=== PATIENT | male | born 1950 | race Caucasian/White ===

== ENCOUNTER 2018-03-03 00:34 | Inpatient (IN) | payer OTHER ==
[~2018-03-03] VITALS: Ht 180.3 cm; Wt 77.1 kg
[2018-03-03] MEDS ORDERED: APRESOLINE100 MG ORAL ×2 (04:57→04:59)
[2018-03-03] MEDS ORDERED: HYDROCHLOROTH12.5 M2 ORAL (04:57)
[2018-03-03] MEDS ORDERED: LIPITOR80 MG ORAL (04:57)
[2018-03-03] MEDS ORDERED: FLUOXETINE HCL25 G1 MISC (04:57)
[2018-03-03] MEDS ORDERED: LEVETIRACETAM250 MG PO (04:57)
[2018-03-03] MEDS ORDERED: PEPTAMEN GT (04:57)
[2018-03-03] MEDS ORDERED: FLUOXETINE20 MG/5 ML ORAL (04:57)
[2018-03-03] MEDS ORDERED: LOVENOX300 MG/3 M SUBQ (04:57)
[2018-03-03] MEDS ORDERED: NORVASC5 MG ORAL (04:57)
[2018-03-03] MEDS ORDERED: LISINOPRIL20 MG ORAL (04:57)
[2018-03-03 07:52] LABS: BASOPHILS % (AUTO) 1.5 % (0.0-2.0); EOSINOPHILS % (AUTO) 2.4 % (0.0-3.0); HEMATOCRIT 32.3 % (42.0-52.0); HEMOGLOBIN 10.9 G/DL (14.2-18.0); LYMPHOCYTES % (AUTO) 9.4 % (20.0-45.0); MEAN CORPUSCULAR VOLUME 87 FL (80-99); MONOCYTES % (AUTO) 9.1 % (1.0-10.0); NEUTROPHILS % (AUTO) 77.7 % (45.0-75.0); PLATELET COUNT 390 K/UL (150-450); RED BLOOD COUNT 3.72 M/UL (4.70-6.10); RED CELL DISTRIBUTION WIDTH 13.5 % (11.6-14.8); WHITE BLOOD COUNT 8.8 K/UL (4.8-10.8)
[2018-03-03 08:09] LABS: ANION GAP 8 mmol/L (5-15); BLOOD UREA NITROGEN 41 mg/dL (7-18); CALCIUM 8.6 MG/DL (8.5-10.1); CARBON DIOXIDE 23 MMOL/L (21-32); CHLORIDE 102 MMOL/L (98-107); CREATININE 1.2 MG/DL (0.55-1.30); POTASSIUM 4.7 MMOL/L (3.5-5.1); SODIUM 133 MMOL/L (136-145)
[2018-03-03 08:53] VITALS: BP 112/64
[2018-03-03] MEDS ORDERED: HydrALAZINE 50mg tab GT PRN (09:30)
[2018-03-03] MEDS ORDERED: Albuterol/Ipratropium 3ml neb HHN PRN (10:00)
[2018-03-03] MEDS ORDERED: Vancomycin 1250mg/D5W 250ml IVPB SCH (10:00)
--- NOTE | 2018-03-03 10:12 | Diagnostic Imaging Report ---
Indication: Cough, chest pain Technique: One view of the chest Comparison: none Findings: There is blunting of left costophrenic sulcus. The remainder the lungs and pleural spaces are clear. Heart size is normal. Impression: Blunted left costophrenic sulcus, may indicate atelectasis, pleural fluid, or both No acute process otherwise
[2018-03-03] MEDS: Enoxaparin 40mg Inj SUBQ SCH (10:56)
[2018-03-03] MEDS ORDERED: Zoysn 3.37gm in NS 100ML IVPB SCH (11:00)
[2018-03-03 12:29] VITALS: BP 144/59
[2018-03-03] MEDS: Albuterol/Ipratropium 3ml neb HHN SCH ×2 (13:37→19:21)
--- NOTE | 2018-03-03 14:03 | History and Physical ---
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 Per pt's girlfriend, on Monday 02/26 but had episode of emesis when he was lying flat while receiving tube feeds. Since then he has had a progressive cough and congestion. He did improve so she didn't bring him in. Yesterday, she noted pt with progressive generalized weakness/lethargy with some confusion. He didn't squeeze her hands as tightly as he normally does. No reports of f/c, chest pain , SOB, abd pain, new focal weakness/numbness/tingling, dysuria. 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 Allergies: Coded Allergies: NO KNOWN ALLERGIES (Verified Allergy, Unknown, 03/03/18) Medication History Scheduled Amlodipine Besylate (Norvasc), 5 MG ORAL BID, (Reported) Aspirin* (Aspir 81*), 81 MG ORAL DAILY, (Reported) Atorvastatin (Lipitor), 80 MG ORAL BEDTIME, (Reported) Enoxaparin Sodium (Lovenox), 40 MG SUBQ DAILY, (Reported) Fluoxetine Hcl* (Fluoxetine Hcl*), 20 MG ORAL DAILY, (Reported) Hydrochlorothiazide* (Hydrochlorothiazide*), 12.5 MG ORAL DAILY, (Reported) Lansoprazole* (Prevacid*), 30 MG ORAL DAILY, (Reported) Levetiracetam* (Levetiracetam*), 500 MG GT BID, (Reported) Lisinopril (Lisinopril*), 20 MG ORAL BID, (Reported) Scheduled PRN Hydralazine HCl (Hydralazine HCl), 100 MG ORAL EVERY 8 HOURS PRN for For High Blood Pressure, (Reported) Discontinued Medications Fluoxetine (Fluoxetine Hcl), 20 GM MISC, (Reported) Discontinued Reason: Medication dose changed Fluoxetine Hcl (Fluoxetine Hcl), 20 MG ORAL DAILY, (Reported) Discontinued Reason: Medication dose changed Hydralazine HCl (Hydralazine HCl), 100 MG ORAL EVERY 8 HOURS, (Reported) Discontinued Reason: Medication dose changed Levetiracetam (Levetiracetam), 100 MG PO BID, (Reported) Discontinued Reason: Prescription changed Nutritional Supplement (Peptamen), 70 ML GT per hour, (Reported) Discontinued Reason: Medication dose changed Patient History History Provided By: Patient, Significant Other, Medical Record, PMD Healthcare decision maker Resuscitation status Full Code Advanced Directive on File No Review of Systems Constitutional: Reports: weakness Eye: Reports: no symptoms ENT: Reports: no symptoms Respiratory: Reports: cough, sputum Cardiovascular: Reports: no symptoms Gastrointestinal: Reports: nausea, vomiting Genitourinary: Reports: no symptoms Musculoskeletal: Reports: no symptoms Skin: Reports: no symptoms Psychiatric: Reports: no symptoms Neurological: Reports: no symptoms Endocrine: Reports: no symptoms Hematologic/Lymphatic: Reports: no symptoms Physical Exam Physical Exam Narrative General: alert, cooperative, no distress, appears stated age, A&Ox3 (name, place , date) Head: normocephalic, without obvious abnormality, atraumatic Eyes: conjunctivae/corneas clear. PERRL, EOM's intact Throat: lips, mucosa, and tongue normal. MMM Neck: supple, symmetrical, trachea midline, and no JVD Lungs: clear to auscultation bilaterally Heart: regular rate and rhythm, S1, S2 normal, no murmur, click, rub or gallop Abdomen: soft, non-tender, non-distended, bowel sounds normal; +PEG c/d/i Extremities: extremities normal, atraumatic, no cyanosis or edema Pulses: 2+ and symmetric Skin: skin color, texture, turgor normal; no rashes or lesions Neurologic: +L hemiplegia w/ L sided facial weakness, dysarthria, L sided neglect Last 24 Hour Vital Signs Date Time Temp Pulse Resp B/P (MAP) Pulse Ox O2 Delivery O2 Flow Rate FiO2 03/03/18 13:42 18 Room Air 21 03/03/18 13:40 67 18 98 Room Air 21 03/03/18 12:29 98.1 69 20 144/59 (87) 99 98.1 03/03/18 11:46 65 03/03/18 09:51 69 112/64 03/03/18 08:53 98.1 69 20 112/64 (80) 99 98.1 03/03/18 07:39 67 03/03/18 07:33 Room Air 03/03/18 04:00 73 03/03/18 03:37 Room Air Intake and Output 03/02/18 03/03/18 19:00 07:00 # Voids 2 Laboratory Tests Test 03/03/18 06:35 White Blood Count 8.8 K/UL (4.8-10.8) Red Blood Count 3.72 M/UL (4.70-6.10) L Hemoglobin 10.9 G/DL (14.2-18.0) L Hematocrit 32.3 % (42.0-52.0) L Mean Corpuscular Volume 87 FL (80-99) Mean Corpuscular Hemoglobin 29.5 PG (27.0-31.0) Mean Corpuscular Hemoglobin Concent 33.9 G/DL (32.0-36.0) Red Cell Distribution Width 13.5 % (11.6-14.8) Platelet Count 390 K/UL (150-450) Mean Platelet Volume 5.1 FL (6.5-10.1) L Neutrophils (%) (Auto) 77.7 % (45.0-75.0) H Lymphocytes (%) (Auto) 9.4 % (20.0-45.0) L Monocytes (%) (Auto) 9.1 % (1.0-10.0) Eosinophils (%) (Auto) 2.4 % (0.0-3.0) Basophils (%) (Auto) 1.5 % (0.0-2.0) Sodium Level 133 MMOL/L (136-145) L Potassium Level 4.7 MMOL/L (3.5-5.1) Chloride Level 102 MMOL/L (98-107) Carbon Dioxide Level 23 MMOL/L (21-32) Anion Gap 8 mmol/L (5-15) Blood Urea Nitrogen 41 mg/dL (7-18) H Creatinine 1.2 MG/DL (0.55-1.30) Estimat Glomerular Filtration Rate > 60 mL/min (>60) Glucose Level 98 MG/DL (74-106) Calcium Level 8.6 MG/DL (8.5-10.1) Height (Feet): 5 Height (Inches): 11.00 Weight (Pounds): 170 Medications Current Medications Medications (Trade) Dose Ordered Sig/Lakeshia Route PRN Reason Start Time Stop Time Status Last Admin Dose Admin Acetaminophen (Tylenol) 650 mg Q6H PRN NG Mild Pain/Temp > 100.5 03/03/18 09:30 04/02/18 09:29 Albuterol/ Ipratropium (Albuterol/ Ipratropium) 3 ml Q4H PRN HHN Shortness of Breath 03/03/18 10:00 03/08/18 09:59 Albuterol/ Ipratropium (Albuterol/ Ipratropium) 3 ml Q6HRT HHN 03/03/18 13:00 03/08/18 12:59 03/03/18 13:37 Amlodipine Besylate (Norvasc) 5 mg BID GT 03/03/18 09:30 04/02/18 09:29 03/03/18 09:51 Enoxaparin Sodium (Lovenox) 40 mg DAILY SUBQ 03/03/18 10:30 04/02/18 10:29 03/03/18 10:56 Hydralazine HCl (Apresoline) 100 mg Q8H PRN GT SBP>160 03/03/18 09:30 04/02/18 09:29 Levetiracetam (Keppra) 100 mg BID GT 03/03/18 09:00 04/02/18 08:59 UNV Non-Formulary Medication (Non-Formulary Med) 1 ea DAILY ORAL 03/03/18 09:00 04/02/18 08:59 UNV Piperacillin Sod/ Tazobactam Sod 3.375 gm/Sodium Chloride 110 ml @ 220 mls/hr Q8H IVPB 03/03/18 11:00 10/5/18 10:59 03/03/18 12:16 Vancomycin HCl (Vanco rx to dose) 1 ea DAILY PRN MISC . 03/03/18 09:45 04/02/18 09:44 Vancomycin HCl 1 gm/Dextrose 275 ml @ 183.708 mls/hr Q12H IVPB 03/03/18 21:00 03/08/18 20:59 Assessment/Plan Problem List: (1) Toxic metabolic encephalopathy ICD Codes: G92 - Toxic encephalopathy SNOMED: 554996890 (2) Aspiration pneumona vs pneumonitis (3) JUSTICE (acute kidney injury) ICD Codes: N17.9 - Acute kidney failure, unspecified SNOMED: 70792335 (4) Hyponatremia ICD Codes: E87.1 - Hypo-osmolality and hyponatremia SNOMED: 03234956 (5) Anemia of chronic disease ICD Codes: D63.8 - Anemia in other chronic diseases classified elsewhere SNOMED: 072627423 Status: stable Assessment/Plan # Toxic metabolic encephalopathy - improving, likely in setting of dehydration, aspiration event. No new focal deficits on exam. CT brain done at OSH showed no acute abormalities # R carotid/R MCA stroke s/p TPA (01/03/18) s/p decompressive hemicraniectomy 01/04 (bone flap preserved in RLQ abdomen) w/ residual L hemiparesis, - Monitor mental status and neuro exam closely - Cont keppra for seizure ppx # Aspiration pneumonia vs pneumonitis - CXR with no infiltrate but possibly in setting of dehydration - Pulmonology and ID consulted - s/p vanco - Cont zosyn per ID (03/03-) - F/u blood cx - F/u repeat CXR in AM --> per ID if no infiltrate, consider augmentin x 5d on d /c - Duonebs ATC and PRN # JUSTICE - SCrr 1.67 at OSH, now improving; likely pre-renal in setting of volume depletion - IVFs - Trend BMP # Hyponatremia - Na 129 at OSH, now improving; likely 2/2 hypovolemia - IVFs w/ NS # HTN - Cont amlodpine 5mg BID - Hold home lisinopril and HCTZ for now in setting of volume depletion # HLD - Cont ASA, statin # FEN/PPX - Diet: cont tube feeds - DVT ppx: lovenox # Dispo - possible d/c in 1-2 days pending further improvement Code Status: Full Hospital Classification Declaration: Based on this initial evaluation, and depending on the patient's clinical course, I anticipate that this patient will require hospitalization for 1-2 days for AMS, concern for aspiration, and close respiratory/hemodynamic monitoring. Disposition: Once the patient is stable to leave the hospital, I anticipate the patient will likely be discharged to the following environment: home with + CG I spent 72 minutes on this patient's case, and 40 minutes were dedicated to counseling and/or care coordination. Discussed with patient/family, nursing staff, SW/CM, PCP, ID, pulmonology regarding clinical status, treatment course, and disposition planning. Time of note may not reflect time of encounter. Katrina Walker M.D. Mar 03, 2018 14:03
--- NOTE | 2018-03-03 16:38 | Infectious Diseases Prog Note ---
Assessment/Plan Assessment/Plan Full consult dictated: aspiration pna sepsis leukocytosis ua - osh - negative cva, htn, left sided weakness, g-tube, sz, right craniotomy allergies - negative sh- negative zosyn, discontinue vancomycin watch clinically consider discharge on augment x week Subjective Allergies: Coded Allergies: NO KNOWN ALLERGIES (Verified Allergy, Unknown, 03/03/18) Objective Vital Signs Last 24 Hour Vital Signs Date Time Temp Pulse Resp B/P (MAP) Pulse Ox O2 Delivery O2 Flow Rate FiO2 03/03/18 13:50 71 18 99 Room Air 21 03/03/18 13:42 67 18 Room Air 21 03/03/18 13:40 67 18 98 Room Air 21 03/03/18 12:29 98.1 69 20 144/59 (87) 99 98.1 03/03/18 11:46 65 03/03/18 09:51 69 112/64 03/03/18 08:53 98.1 69 20 112/64 (80) 99 98.1 03/03/18 07:39 67 03/03/18 07:33 Room Air 03/03/18 04:00 73 03/03/18 03:37 Room Air Height (Feet): 5 Height (Inches): 11.00 Weight (Pounds): 170 Laboratory Tests Test 03/03/18 06:35 White Blood Count 8.8 K/UL (4.8-10.8) Red Blood Count 3.72 M/UL (4.70-6.10) L Hemoglobin 10.9 G/DL (14.2-18.0) L Hematocrit 32.3 % (42.0-52.0) L Mean Corpuscular Volume 87 FL (80-99) Mean Corpuscular Hemoglobin 29.5 PG (27.0-31.0) Mean Corpuscular Hemoglobin Concent 33.9 G/DL (32.0-36.0) Red Cell Distribution Width 13.5 % (11.6-14.8) Platelet Count 390 K/UL (150-450) Mean Platelet Volume 5.1 FL (6.5-10.1) L Neutrophils (%) (Auto) 77.7 % (45.0-75.0) H Lymphocytes (%) (Auto) 9.4 % (20.0-45.0) L Monocytes (%) (Auto) 9.1 % (1.0-10.0) Eosinophils (%) (Auto) 2.4 % (0.0-3.0) Basophils (%) (Auto) 1.5 % (0.0-2.0) Sodium Level 133 MMOL/L (136-145) L Potassium Level 4.7 MMOL/L (3.5-5.1) Chloride Level 102 MMOL/L (98-107) Carbon Dioxide Level 23 MMOL/L (21-32) Anion Gap 8 mmol/L (5-15) Blood Urea Nitrogen 41 mg/dL (7-18) H Creatinine 1.2 MG/DL (0.55-1.30) Estimat Glomerular Filtration Rate > 60 mL/min (>60) Glucose Level 98 MG/DL (74-106) Calcium Level 8.6 MG/DL (8.5-10.1) Current Medications Medications (Trade) Dose Ordered Sig/Lakeshia Route PRN Reason Start Time Stop Time Status Last Admin Dose Admin Acetaminophen (Tylenol) 650 mg Q6H PRN NG Mild Pain/Temp > 100.5 03/03/18 09:30 04/02/18 09:29 Albuterol/ Ipratropium (Albuterol/ Ipratropium) 3 ml Q4H PRN HHN Shortness of Breath 03/03/18 10:00 03/08/18 09:59 Albuterol/ Ipratropium (Albuterol/ Ipratropium) 3 ml Q6HRT HHN 03/03/18 13:00 03/08/18 12:59 03/03/18 13:37 Amlodipine Besylate (Norvasc) 5 mg BID GT 03/03/18 09:30 04/02/18 09:29 03/03/18 09:51 Enoxaparin Sodium (Lovenox) 40 mg DAILY SUBQ 03/03/18 10:30 04/02/18 10:29 03/03/18 10:56 Hydralazine HCl (Apresoline) 100 mg Q8H PRN GT SBP>160 03/03/18 09:30 04/02/18 09:29 Levetiracetam (Keppra) 100 mg BID GT 03/03/18 09:00 04/02/18 08:59 UNV Non-Formulary Medication (Non-Formulary Med) 1 ea DAILY ORAL 03/03/18 09:00 04/02/18 08:59 UNV Piperacillin Sod/ Tazobactam Sod 3.375 gm/Sodium Chloride 110 ml @ 220 mls/hr Q8H IVPB 03/03/18 11:00 03/10/18 10:59 03/03/18 12:16 Sodium Chloride 1,000 ml @ 75 mls/hr [id number] IV 03/03/18 14:06 04/02/18 14:05 03/03/18 14:21 Vancomycin HCl (Vanco rx to dose) 1 ea DAILY PRN MISC . 03/03/18 09:45 04/02/18 09:44 Vancomycin HCl 1 gm/Dextrose 275 ml @ 183.708 mls/hr Q12H IVPB 03/03/18 21:00 03/08/18 20:59 Chary Zabala MD Mar 03, 2018 16:38
[2018-03-03 17:14] VITALS: BP 132/78
[2018-03-03] MEDS ORDERED: levETIRAcetam 500mg/5ml Liquid GT SCH (18:00)
[2018-03-03] MEDS: Piperacillin/Tazobactam 3.375 GM in D5W 110 ML IVPB SCH (18:09)
[2018-03-03] MEDS ORDERED: ASPIR 8181 MG ORAL (18:40)
[2018-03-03] MEDS ORDERED: FLUOXETINE HCL20 M2 ORAL (18:40)
[2018-03-03] MEDS ORDERED: PREVACID30 MG ORAL (18:40)
[2018-03-03] MEDS ORDERED: LEVETIRACE100 MG/1 M GT (18:43)
[2018-03-03] MEDS: levETIRAcetam 500mg/5ml Liquid GT SCH (20:31)
[2018-03-03] MEDS ORDERED: Vancomycin 1gm in D5W 275ml IVPB SCH (21:00)
--- NOTE | 2018-03-03 21:07 | Pulmonology Progress Note ---
Assessment/Plan Assessment/Plan Pulmonary Consultation Note 67y/o male with Past History of Hypertension, previous Throat Cancer s/p Radiotherapy/chemotherapy, recent R carotid/R MCA stroke s/p TPA (01/03/18), subsequent decompressive hemicraniectomy 01/04/2018 (bone flap preserved in RLQ abdomen), HL, dysphagia s/p PEG 01/20/18 who presents with AMS and concern for Aspiration Pneumonia PMH/PSH: HTN, Squamous Throat Cancer s/p Radiotherapy/chemotherapy, R carotid/R MCA stroke s/p TPA (01/03/18), decompressive hemicraniectomy 01/04/2018, HL, dysphagia s/p PEG 01/20/18 FMH: [place] SH: lives at home w/ girlfriend Odilia and 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 Allergies: Coded Allergies: NO KNOWN ALLERGIES (Verified Allergy, Unknown, 03/03/18) Medication History Scheduled Amlodipine Besylate (Norvasc), 5 MG ORAL BID, (Reported) Aspirin* (Aspir 81*), 81 MG ORAL DAILY, (Reported) Atorvastatin (Lipitor), 80 MG ORAL BEDTIME, (Reported) Enoxaparin Sodium (Lovenox), 40 MG SUBQ DAILY, (Reported) Fluoxetine Hcl* (Fluoxetine Hcl*), 20 MG ORAL DAILY, (Reported) Hydrochlorothiazide* (Hydrochlorothiazide*), 12.5 MG ORAL DAILY, (Reported) Lansoprazole* (Prevacid*), 30 MG ORAL DAILY, (Reported) Levetiracetam* (Levetiracetam*), 500 MG GT BID, (Reported) Lisinopril (Lisinopril*), 20 MG ORAL BID, (Reported) Scheduled PRN Hydralazine HCl (Hydralazine HCl), 100 MG ORAL EVERY 8 HOURS PRN for For High Blood Pressure, (Reported) Discontinued Medications Fluoxetine (Fluoxetine Hcl), 20 GM MISC, (Reported) Discontinued Reason: Medication dose changed Fluoxetine Hcl (Fluoxetine Hcl), 20 MG ORAL DAILY, (Reported) Discontinued Reason: Medication dose changed Hydralazine HCl (Hydralazine HCl), 100 MG ORAL EVERY 8 HOURS, (Reported) Discontinued Reason: Medication dose changed Levetiracetam (Levetiracetam), 100 MG PO BID, (Reported) Discontinued Reason: Prescription changed Nutritional Supplement (Peptamen), 70 ML GT per hour, (Reported) Discontinued Reason: Medication dose changed Patient History History Provided By: Patient, Significant Other, Medical Record, PMD Healthcare decision maker Resuscitation status Full Code Advanced Directive on File No Physical Exam Last 24 Hour Vital Signs Date Time Temp Pulse Resp B/P (MAP) Pulse Ox O2 Delivery O2 Flow Rate FiO2 03/03/18 13:42 67 18 Room Air 21 03/03/18 13:40 67 18 98 Room Air 21 03/03/18 12:29 98.1 69 20 144/59 (87) 99 98.1 03/03/18 11:46 65 03/03/18 09:51 69 112/64 03/03/18 08:53 98.1 69 20 112/64 (80) 99 98.1 03/03/18 07:39 67 03/03/18 07:33 Room Air 03/03/18 04:00 73 03/03/18 03:37 Room Air Intake and Output 03/02/18 03/03/18 19:00 07:00 # Voids 2 HEENT: R Craniectomy, left facial, opthalmoplegia, JVP 6cm Chest: Rhonchi RLZ Heart: HS1, HS2 RRR Abdo: Soft NT, ND, Gtube Extrem: Generally wasted, no rashes METAL HARDENER: Left facial, left hemiplegia Laboratory Tests CXR: Minimal blunting left costophrenic angle Test 03/03/18 06:35 White Blood Count 8.8 K/UL (4.8-10.8) Red Blood Count 3.72 M/UL (4.70-6.10) L Hemoglobin 10.9 G/DL (14.2-18.0) L Hematocrit 32.3 % (42.0-52.0) L Mean Corpuscular Volume 87 FL (80-99) Mean Corpuscular Hemoglobin 29.5 PG (27.0-31.0) Mean Corpuscular Hemoglobin Concent 33.9 G/DL (32.0-36.0) Red Cell Distribution Width 13.5 % (11.6-14.8) Platelet Count 390 K/UL (150-450) Mean Platelet Volume 5.1 FL (6.5-10.1) L Neutrophils (%) (Auto) 77.7 % (45.0-75.0) H Lymphocytes (%) (Auto) 9.4 % (20.0-45.0) L Monocytes (%) (Auto) 9.1 % (1.0-10.0) Eosinophils (%) (Auto) 2.4 % (0.0-3.0) Basophils (%) (Auto) 1.5 % (0.0-2.0) Sodium Level 133 MMOL/L (136-145) L Potassium Level 4.7 MMOL/L (3.5-5.1) Chloride Level 102 MMOL/L (98-107) Carbon Dioxide Level 23 MMOL/L (21-32) Anion Gap 8 mmol/L (5-15) Blood Urea Nitrogen 41 mg/dL (7-18) H Creatinine 1.2 MG/DL (0.55-1.30) Estimat Glomerular Filtration Rate > 60 mL/min (>60) Glucose Level 98 MG/DL (74-106) Calcium Level 8.6 MG/DL (8.5-10.1) Height (Feet): 5 Height (Inches): 11.00 Weight (Pounds): 170 Medications Current Medications Medications (Trade) Dose Ordered Sig/Lakeshia Route PRN Reason Start Time Stop Time Status Last Admin Dose Admin Acetaminophen (Tylenol) 650 mg Q6H PRN NG Mild Pain/Temp > 100.5 03/03/18 09:30 04/02/18 09:29 Albuterol/ Ipratropium (Albuterol/ Ipratropium) 3 ml Q4H PRN HHN Shortness of Breath 03/03/18 10:00 03/08/18 09:59 Albuterol/ Ipratropium (Albuterol/ Ipratropium) 3 ml Q6HRT HHN 03/03/18 13:00 03/08/18 12:59 03/03/18 13:37 Amlodipine Besylate (Norvasc) 5 mg BID GT 03/03/18 09:30 04/02/18 09:29 03/03/18 09:51 Enoxaparin Sodium (Lovenox) 40 mg DAILY SUBQ 03/03/18 10:30 04/02/18 10:29 03/03/18 10:56 Hydralazine HCl (Apresoline) 100 mg Q8H PRN GT SBP>160 03/03/18 09:30 04/02/18 09:29 Levetiracetam (Keppra) 100 mg BID GT 03/03/18 09:00 04/02/18 08:59 UNV Non-Formulary Medication (Non-Formulary Med) 1 ea DAILY ORAL 03/03/18 09:00 04/02/18 08:59 UNV Piperacillin Sod/ Tazobactam Sod 3.375 gm/Sodium Chloride 110 ml @ 220 mls/hr Q8H IVPB 03/03/18 11:00 03/10/18 10:59 03/03/18 12:16 Vancomycin HCl (Vanco rx to dose) 1 ea DAILY PRN MISC . 03/03/18 09:45 04/02/18 09:44 Vancomycin HCl 1 gm/Dextrose 275 ml @ 183.708 mls/hr Q12H IVPB 03/03/18 21:00 03/08/18 20:59 Assessment/Plan Recent episode of aspiration Possible early Pneumonia - rhonchi right base, on Zosyn per ID HHN, CPT, Aspiration precacautions, O2 for sats 90-96% Recent R carotid/R MCA stroke s/p TPA (01/03/18), subsequent decompressive hemicraniectomy Dysphagia s/p PEG 01/20/18 Previous Throat Cancer s/p Radiotherapy/chemotherapy Hypertension Hyperlipidemia PPX: Lovenox Subjective ROS Limited/Unobtainable: Yes Allergies: Coded Allergies: NO KNOWN ALLERGIES (Verified Allergy, Unknown, 03/03/18) Objective Last 24 Hour Vital Signs Date Time Temp Pulse Resp B/P (MAP) Pulse Ox O2 Delivery O2 Flow Rate FiO2 03/03/18 19:29 75 20 99 Room Air 21 03/03/18 19:21 69 18 95 Room Air 21 03/03/18 17:14 98.0 70 20 132/78 (96) 99 98.0 03/03/18 17:09 70 132/78 03/03/18 15:54 76 03/03/18 13:50 71 18 99 Room Air 21 03/03/18 13:42 67 18 Room Air 21 03/03/18 13:40 67 18 98 Room Air 21 03/03/18 12:29 98.1 69 20 144/59 (87) 99 98.1 03/03/18 11:46 65 9/28/18 09:51 69 112/64 03/03/18 08:53 98.1 69 20 112/64 (80) 99 98.1 03/03/18 07:39 67 03/03/18 07:33 Room Air 03/03/18 04:00 73 03/03/18 03:37 Room Air Intake and Output 03/02/18 03/03/18 19:00 07:00 # Voids 2 Laboratory Tests 03/03/18 06:35: White Blood Count 8.8, Red Blood Count 3.72L, Hemoglobin 10.9L, Hematocrit 32.3L , Mean Corpuscular Volume 87, Mean Corpuscular Hemoglobin 29.5, Mean Corpuscular Hemoglobin Concent 33.9, Red Cell Distribution Width 13.5, Platelet Count 390, Mean Platelet Volume 5.1L, Neutrophils (%) (Auto) 77.7H, Lymphocytes (%) (Auto) 9.4L, Monocytes (%) (Auto) 9.1, Eosinophils (%) (Auto) 2.4, Basophils (%) (Auto) 1.5, Sodium Level 133L, Potassium Level 4.7, Chloride Level 102, Carbon Dioxide Level 23, Anion Gap 8, Blood Urea Nitrogen 41H, Creatinine 1.2, Estimat Glomerular Filtration Rate > 60, Glucose Level 98, Calcium Level 8.6 Current Medications Medications (Trade) Dose Ordered Sig/Lakeshia Route PRN Reason Start Time Stop Time Status Last Admin Dose Admin Acetaminophen (Tylenol) 650 mg Q6H PRN NG Mild Pain/Temp > 100.5 03/03/18 09:30 04/02/18 09:29 Albuterol/ Ipratropium (Albuterol/ Ipratropium) 3 ml Q4H PRN HHN Shortness of Breath 03/03/18 10:00 03/08/18 09:59 Albuterol/ Ipratropium (Albuterol/ Ipratropium) 3 ml Q6HRT HHN 03/03/18 13:00 03/08/18 12:59 03/03/18 19:21 Amlodipine Besylate (Norvasc) 5 mg BID GT 03/03/18 09:30 04/02/18 09:29 03/03/18 17:09 Enoxaparin Sodium (Lovenox) 40 mg DAILY SUBQ 03/03/18 10:30 04/02/18 10:29 03/03/18 10:56 Hydralazine HCl (Apresoline) 100 mg Q8H PRN GT SBP>160 03/03/18 09:30 04/02/18 09:29 Levetiracetam (Keppra) 500 mg Q12HR GT 03/03/18 21:00 04/02/18 20:59 03/03/18 20:31 Non-Formulary Medication (Non-Formulary Med) 1 ea DAILY ORAL 03/03/18 09:00 04/02/18 08:59 UNV Piperacillin Sod/ Tazobactam Sod 3.375 gm/Dextrose 110 ml @ 27.5 mls/hr Q8H IVPB 03/03/18 19:00 03/10/18 18:59 03/03/18 18:09 Sodium Chloride 1,000 ml @ 75 mls/hr [id number] IV 03/03/18 14:06 04/02/18 14:05 03/03/18 14:21 Enrique Mujica MD Mar 03, 2018 21:07
[2018-03-03] MEDS ORDERED: Piperacillin/Tazobactam 3.375 GM in D5W 110 ML IVPB SCH (22:00)
[2018-03-04] VITALS: BP 149/71
[2018-03-04] MEDS: Albuterol/Ipratropium 3ml neb HHN SCH ×4 (00:11→18:37)
[2018-03-04] MEDS: Piperacillin/Tazobactam 3.375 GM in D5W 110 ML IVPB SCH ×2 (03:01→10:22)
[2018-03-04 04:00] VITALS: BP 131/62
[2018-03-04 07:43] LABS: BASOPHILS % (AUTO) 2.1 % (0.0-2.0); EOSINOPHILS % (AUTO) 2.2 % (0.0-3.0); HEMATOCRIT 28.1 % (42.0-52.0); HEMOGLOBIN 9.6 G/DL (14.2-18.0); LYMPHOCYTES % (AUTO) 13.2 % (20.0-45.0); MEAN CORPUSCULAR VOLUME 86 FL (80-99); MONOCYTES % (AUTO) 7.9 % (1.0-10.0); NEUTROPHILS % (AUTO) 74.6 % (45.0-75.0); PLATELET COUNT 331 K/UL (150-450); RED BLOOD COUNT 3.26 M/UL (4.70-6.10); RED CELL DISTRIBUTION WIDTH 13.5 % (11.6-14.8); WHITE BLOOD COUNT 6.8 K/UL (4.8-10.8)
[2018-03-04 08:00] VITALS: BP 152/66
[2018-03-04] MEDS: Enoxaparin 40mg Inj SUBQ SCH (08:17)
[2018-03-04] MEDS: levETIRAcetam 500mg/5ml Liquid GT SCH ×2 (08:19→20:34)
[2018-03-04 08:33] LABS: ALANINE AMINOTRANSFERASE 22 U/L (12-78); ALBUMIN 2.6 G/DL (3.4-5.0); ALKALINE PHOSPHATASE 67 U/L (46-116); ANION GAP 9 mmol/L (5-15); ASPARTATE AMINO TRANSFERASE 13 U/L (15-37); BILIRUBIN,DIRECT 0.1 MG/DL (0.0-0.3); BILIRUBIN,TOTAL 0.5 MG/DL (0.2-1.0); BLOOD UREA NITROGEN 26 mg/dL (7-18); CALCIUM 8.8 MG/DL (8.5-10.1); CARBON DIOXIDE 24 MMOL/L (21-32); CHLORIDE 102 MMOL/L (98-107); POTASSIUM 4.3 MMOL/L (3.5-5.1); SODIUM 135 MMOL/L (136-145)
--- NOTE | 2018-03-04 09:05 | Diagnostic Imaging Report ---
EXAM: XR Chest, 1 View CLINICAL HISTORY: INFECT TECHNIQUE: Frontal view of the chest. COMPARISON: Chest x-ray dated 03/03/18 FINDINGS: Lungs: Subsegmental atelectasis at the periphery of the left lung base. Pleural space: Unremarkable. The costophrenic angles are sharp. No visible pneumothorax. Heart: Unremarkable. No cardiomegaly. Mediastinum: Unremarkable. Bones/joints: Unremarkable. Tubes, lines and devices: EKG leads overlie the thorax. IMPRESSION: Subsegmental atelectasis at the periphery of the left lung base.
[2018-03-04] MEDS: Acetaminophen 650mg/20.3ml NG PRN ×2 (11:23→20:33)
[2018-03-04 12:00] VITALS: BP 143/68
--- NOTE | 2018-03-04 15:12 | General Progress Note ---
Assessment/Plan Assessment/Plan Acute metabolic encephalopathy multifactorial from JUSTICE and suspected pneumonia, improving per nursing. Continue to treat underlying acute medical problems and monitor mentation. Possible aspiration pneumonia versus pneumonitis, CXR today, personally reviewed , without acute infiltrate, will transition to Augmentin via G-tube and monitor JUSTICE secondary to volume depletion and dehydration, improving with IV fluids. Continue to monitor BMP Hyponatremia, improving with IV fluids, check labs in AM Essential HTN, controlled, continue amlodipine, ACEI and HCTZ held due to JUSTICE history of right MCA stroke s/p TPA (01/03/18) s/p decompressive hemicraniectomy 01/04/2018 (bone flap preserved in RLQ abdomen) w/ residual L hemiparesis, stable , continue Keppra for seizure prophylaxis VTE PPx, continue Lovenox SC Subjective Date patient seen: Mar 04, 2018 Time patient seen: 14:59 ROS Limited/Unobtainable: Yes - Due to history of stroke and aphasia Allergies: Coded Allergies: NO KNOWN ALLERGIES (Verified Allergy, Unknown, 03/03/18) Subjective Medicine followup for multiple medical problems including acute metabolic encephalopathy suspected to be due to possible aspiration, dehydration causing JUSTICE and hyponatremia which are improving. Patient is a limited historian due to history of stroke, information obtained from medical record and nurse at the bedside. Objective Last 24 Hour Vital Signs Date Time Temp Pulse Resp B/P (MAP) Pulse Ox O2 Delivery O2 Flow Rate FiO2 03/04/18 14:09 72 18 99 Room Air 21 03/04/18 13:59 69 18 97 Room Air 21 03/04/18 12:00 97.8 70 18 143/68 (93) 99 97.8 03/04/18 12:00 65 03/04/18 11:53 97.8 03/04/18 11:23 97.9 03/04/18 09:00 Room Air 03/04/18 08:19 76 152/66 03/04/18 08:00 97.9 76 18 152/66 (94) 99 97.9 03/04/18 08:00 90 03/04/18 07:32 77 20 99 Room Air 21 03/04/18 07:24 72 18 97 Room Air 21 03/04/18 04:00 97.9 72 20 131/62 (85) 98 97.9 03/04/18 04:00 67 03/04/18 00:28 78 20 99 Room Air 21 03/04/18 00:11 63 18 96 Room Air 21 03/04/18 00:00 65 03/04/18 00:00 98.2 18 149/71 (97) 97 98.2 03/03/18 21:00 Room Air 03/03/18 20:00 78 03/03/18 19:29 75 20 99 Room Air 21 03/03/18 19:21 69 18 95 Room Air 21 03/03/18 17:14 98.0 70 20 132/78 (96) 99 98.0 03/03/18 17:09 70 132/78 03/03/18 15:54 76 Intake and Output 03/03/18 03/04/18 19:00 07:00 Intake Total 1405.834 ml 525 ml Balance 1405.834 ml 525 ml Intake Free Water 120 ml IV Total 655.834 ml 525 ml Tube Feeding 630 ml # Voids 6 2 Laboratory Tests 03/04/18 06:30: White Blood Count 6.8, Red Blood Count 3.26L, Hemoglobin 9.6L, Hematocrit 28.1L , Mean Corpuscular Volume 86, Mean Corpuscular Hemoglobin 29.3, Mean Corpuscular Hemoglobin Concent 34.0, Red Cell Distribution Width 13.5, Platelet Count 331, Mean Platelet Volume 4.9L, Neutrophils (%) (Auto) 74.6, Lymphocytes ( %) (Auto) 13.2L, Monocytes (%) (Auto) 7.9, Eosinophils (%) (Auto) 2.2, Basophils (%) (Auto) 2.1H, Sodium Level 135L, Potassium Level 4.3, Chloride Level 102, Carbon Dioxide Level 24, Anion Gap 9, Blood Urea Nitrogen 26H, Creatinine 1.0, Estimat Glomerular Filtration Rate > 60, Glucose Level 113H, Calcium Level 8.8, Magnesium Level 1.7L, Total Bilirubin 0.5, Direct Bilirubin 0.1, Aspartate Amino Transf (AST/SGOT) 13L, Alanine Aminotransferase (ALT/SGPT) 22, Alkaline Phosphatase 67, Total Protein 5.9L, Albumin 2.6L, Vitamin B12 Level 1016H, Vitamin D 25-Hydroxy [Pending], 25-Hydroxy Vitamin D2 [Pending], 25 -Hydroxy Vitamin D3 [Pending], Folate 18.7, Thyroid Stimulating Hormone (TSH) 1.720 Height (Feet): 5 Height (Inches): 11.00 Weight (Pounds): 170 General Appearance: no apparent distress, alert EENT: normal ENT inspection Neck: normal alignment Cardiovascular: normal rate, regular rhythm Respiratory/Chest: lungs clear, normal breath sounds Abdomen: non tender, soft Skin: normal pigmentation, warm/dry Keven Feliz MD Mar 04, 2018 15:12
[2018-03-04 16:00] VITALS: BP 123/73
[2018-03-04 20:00] VITALS: BP 137/58
[2018-03-04] MEDS: Augmentin 875mg Tab GT SCH (20:34)
--- NOTE | 2018-03-04 21:34 | Pulmonology Progress Note ---
Assessment/Plan Assessment/Plan Assessment/Plan Recent episode of aspiration Possible early Pneumonia - on Zosyn per ID HHN, CPT, Aspiration precacautions, O2 for sats 90-96% Recent R carotid/R MCA stroke s/p TPA (01/03/18), subsequent decompressive hemicraniectomy Dysphagia s/p PEG 01/20/18 Previous Throat Cancer s/p Radiotherapy/chemotherapy Hypertension Hyperlipidemia PPX: Lovenox Subjective ROS Limited/Unobtainable: Yes Allergies: Coded Allergies: NO KNOWN ALLERGIES (Verified Allergy, Unknown, 03/03/18) Subjective lethargic no cp nv toelrating tf mosit cough wounds noted not oob without assist Objective Last 24 Hour Vital Signs Date Time Temp Pulse Resp B/P (MAP) Pulse Ox O2 Delivery O2 Flow Rate FiO2 03/04/18 18:46 65 18 99 Room Air 21 03/04/18 18:37 67 18 98 Room Air 03/04/18 17:12 70 123/93 03/04/18 16:00 97.2 70 18 123/73 (90) 99 97.2 03/04/18 16:00 76 03/04/18 14:09 72 18 99 Room Air 21 03/04/18 13:59 69 18 97 Room Air 03/04/18 12:00 97.8 70 18 143/68 (93) 99 97.8 03/04/18 12:00 65 03/04/18 11:53 97.8 03/04/18 11:23 97.9 03/04/18 09:00 Room Air 03/04/18 08:19 76 152/66 03/04/18 08:00 97.9 76 18 152/66 (94) 99 97.9 03/04/18 08:00 90 03/04/18 07:32 77 20 99 Room Air 21 03/04/18 07:24 72 18 97 Room Air 21 03/04/18 04:00 97.9 72 20 131/62 (85) 98 97.9 03/04/18 04:00 67 03/04/18 00:28 78 20 99 Room Air 21 03/04/18 00:11 63 18 96 Room Air 21 03/04/18 00:00 65 03/04/18 00:00 98.2 18 149/71 (97) 97 98.2 Intake and Output 03/03/18 03/04/18 19:00 07:00 Intake Total 1405.834 ml 525 ml Balance 1405.834 ml 525 ml Intake Free Water 120 ml IV Total 655.834 ml 525 ml Tube Feeding 630 ml # Voids 6 2 General Appearance: cachetic Respiratory/Chest: rhonchi Cardiovascular: normal rate, regular rhythm Abdomen: soft, non tender, no organomegaly Neurologic/Psychiatric: disoriented Microbiology Date/Time Source Procedure Growth Status 03/03/18 09:20 Blood Blood Culture - Preliminary NO GROWTH AFTER 24 HOURS Resulted 03/03/18 09:10 Blood Blood Culture - Preliminary NO GROWTH AFTER 24 HOURS Resulted Laboratory Tests 03/04/18 06:30: White Blood Count 6.8, Red Blood Count 3.26L, Hemoglobin 9.6L, Hematocrit 28.1L , Mean Corpuscular Volume 86, Mean Corpuscular Hemoglobin 29.3, Mean Corpuscular Hemoglobin Concent 34.0, Red Cell Distribution Width 13.5, Platelet Count 331, Mean Platelet Volume 4.9L, Neutrophils (%) (Auto) 74.6, Lymphocytes ( %) (Auto) 13.2L, Monocytes (%) (Auto) 7.9, Eosinophils (%) (Auto) 2.2, Basophils (%) (Auto) 2.1H, Sodium Level 135L, Potassium Level 4.3, Chloride Level 102, Carbon Dioxide Level 24, Anion Gap 9, Blood Urea Nitrogen 26H, Creatinine 1.0, Estimat Glomerular Filtration Rate > 60, Glucose Level 113H, Calcium Level 8.8, Magnesium Level 1.7L, Total Bilirubin 0.5, Direct Bilirubin 0.1, Aspartate Amino Transf (AST/SGOT) 13L, Alanine Aminotransferase (ALT/SGPT) 22, Alkaline Phosphatase 67, Total Protein 5.9L, Albumin 2.6L, Vitamin B12 Level 1016H, Vitamin D 25-Hydroxy [Pending], 25-Hydroxy Vitamin D2 [Pending], 25 -Hydroxy Vitamin D3 [Pending], Folate 18.7, Thyroid Stimulating Hormone (TSH) 1.720 Current Medications Medications (Trade) Dose Ordered Sig/Lakeshia Route PRN Reason Start Time Stop Time Status Last Admin Dose Admin Acetaminophen (Tylenol) 650 mg Q6H PRN NG Mild Pain/Temp > 100.5 03/03/18 09:30 04/02/18 09:29 03/04/18 20:33 Albuterol/ Ipratropium (Albuterol/ Ipratropium) 3 ml Q4H PRN HHN Shortness of Breath 03/03/18 10:00 03/08/18 09:59 Albuterol/ Ipratropium (Albuterol/ Ipratropium) 3 ml Q6HRT HHN 03/03/18 13:00 03/08/18 12:59 03/04/18 18:37 Amlodipine Besylate (Norvasc) 5 mg BID GT 03/03/18 09:30 04/02/18 09:29 03/04/18 17:12 Amoxicillin/ Clavulanate Potassium (Augmentin) 875 mg EVERY 12 HOURS GT 03/04/18 21:00 03/11/18 20:59 03/04/18 20:34 Enoxaparin Sodium (Lovenox) 40 mg DAILY SUBQ 03/03/18 10:30 04/02/18 10:29 03/04/18 08:17 Hydralazine HCl (Apresoline) 100 mg Q8H PRN GT SBP>160 03/03/18 09:30 04/02/18 09:29 Lansoprazole (Prevacid) 30 mg DAILY GT 03/04/18 09:00 04/03/18 08:59 03/04/18 08:18 Levetiracetam (Keppra) 500 mg Q12HR GT 03/03/18 21:00 04/02/18 20:59 03/04/18 20:34 Non-Formulary Medication (Non-Formulary Med) 1 ea DAILY ORAL 03/03/18 09:00 04/02/18 08:59 UNV Ondansetron HCl (Zofran) 4 mg Q6H PRN IVP Nausea & Vomiting 03/03/18 22:15 04/02/18 22:14 03/03/18 22:37 Sodium Chloride 1,000 ml @ 75 mls/hr [id number] IV 03/03/18 14:06 04/02/18 14:05 03/04/18 17:12 Jeannine Matt DO Mar 04, 2018 21:34
[2018-03-05] VITALS: BP 125/51
[2018-03-05] MEDS: Albuterol/Ipratropium 3ml neb HHN SCH ×3 (00:44→13:03)
[2018-03-05 04:00] VITALS: BP 134/61
[2018-03-05 07:15] LABS: BASOPHILS % (AUTO) 1.7 % (0.0-2.0); EOSINOPHILS % (AUTO) 2.9 % (0.0-3.0); HEMATOCRIT 27.3 % (42.0-52.0); HEMOGLOBIN 9.3 G/DL (14.2-18.0); LYMPHOCYTES % (AUTO) 12.1 % (20.0-45.0); MEAN CORPUSCULAR VOLUME 86 FL (80-99); MONOCYTES % (AUTO) 8.2 % (1.0-10.0); PLATELET COUNT 206 K/UL (150-450); RED BLOOD COUNT 3.16 M/UL (4.70-6.10); RED CELL DISTRIBUTION WIDTH 13.5 % (11.6-14.8)
[2018-03-05 07:42] LABS: ANION GAP 9 mmol/L (5-15); BLOOD UREA NITROGEN 19 mg/dL (7-18); CALCIUM 8.6 MG/DL (8.5-10.1); CARBON DIOXIDE 25 MMOL/L (21-32); CHLORIDE 105 MMOL/L (98-107); CREATININE 0.7 MG/DL (0.55-1.30); POTASSIUM 3.9 MMOL/L (3.5-5.1); SODIUM 139 MMOL/L (136-145)
[2018-03-05] MEDS: levETIRAcetam 500mg/5ml Liquid GT SCH (08:41)
[2018-03-05] MEDS: Augmentin 875mg Tab GT SCH (08:41)
[2018-03-05 08:42] VITALS: BP 145/76
[2018-03-05] MEDS: Enoxaparin 40mg Inj SUBQ SCH (08:45)
[2018-03-05 11:31] VITALS: BP 147/73
--- NOTE | 2018-03-05 13:41 | Consultation ---
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 Per pt's girlfriend, on Monday 02/26 but had episode of emesis when he was lying flat while receiving tube feeds. Since then he has had a progressive cough and congestion. He did improve so she didn't bring him in. Prior to admission, he noted pt with progressive generalized weakness/lethargy with some confusion. He didn't squeeze her hands as tightly as he normally does. No reports of f/c, chest pain, SOB, abd pain, new focal weakness/numbness/tingling, dysuria. 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 Allergies: NO KNOWN ALLERGIES (Verified Allergy, Unknown, 03/03/18) Medication History Scheduled Amlodipine Besylate (Norvasc), 5 MG ORAL BID, (Reported) Aspirin* (Aspir 81*), 81 MG ORAL DAILY, (Reported) Atorvastatin (Lipitor), 80 MG ORAL BEDTIME, (Reported) Enoxaparin Sodium (Lovenox), 40 MG SUBQ DAILY, (Reported) Fluoxetine Hcl* (Fluoxetine Hcl*), 20 MG ORAL DAILY, (Reported) Hydrochlorothiazide* (Hydrochlorothiazide*), 12.5 MG ORAL DAILY, (Reported) Lansoprazole* (Prevacid*), 30 MG ORAL DAILY, (Reported) Levetiracetam* (Levetiracetam*), 500 MG GT BID, (Reported) Lisinopril (Lisinopril*), 20 MG ORAL BID, (Reported) Scheduled PRN Hydralazine HCl (Hydralazine HCl), 100 MG ORAL EVERY 8 HOURS PRN for For High Blood Pressure, (Reported) Discontinued Medications Fluoxetine (Fluoxetine Hcl), 20 GM MISC, (Reported) Discontinued Reason: Medication dose changed Fluoxetine Hcl (Fluoxetine Hcl), 20 MG ORAL DAILY, (Reported) Discontinued Reason: Medication dose changed Hydralazine HCl (Hydralazine HCl), 100 MG ORAL EVERY 8 HOURS, (Reported) Discontinued Reason: Medication dose changed Levetiracetam (Levetiracetam), 100 MG PO BID, (Reported) Discontinued Reason: Prescription changed Nutritional Supplement (Peptamen), 70 ML GT per hour, (Reported) Discontinued Reason: Medication dose changed Patient History History Provided By: Patient, Significant Other, Medical Record, PMD Healthcare decision maker Resuscitation status Full Code Advanced Directive on File No Review of Systems Constitutional: Reports: weakness Eye: Reports: no symptoms ENT: Reports: no symptoms Respiratory: Reports: cough, sputum Cardiovascular: Reports: no symptoms Gastrointestinal: Reports: nausea, vomiting Genitourinary: Reports: no symptoms Musculoskeletal: Reports: no symptoms Skin: Reports: no symptoms Psychiatric: Reports: no symptoms Neurological: Reports: no symptoms Endocrine: Reports: no symptoms Hematologic/Lymphatic: Reports: no symptoms Physical Exam Physical Exam Narrative General: alert, cooperative, no distress, A&Ox3 Head: normocephalic, without obvious abnormality Eyes: conjunctivae/corneas clear. PERRL Throat: lips, mucosa, and tongue normal. 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 --> Continue to treat underlying acute medical problems and monitor mentation. # Possible aspiration pneumonia versus pneumonitis, CXR today, personally reviewed, without acute infiltrate, --> per Gi abx # JUSTICE secondary to volume depletion and dehydration, improving with IV fluids. Continue to monitor BMP # Hyponatremia, improving with IV fluids, check labs in AM # history of right MCA stroke s/p TPA (01/03/18) s/p decompressive hemicraniectomy 01/04/2018 (bone flap preserved in RLQ abdomen) w/ residual L hemiparesis, stable DW Attending, appreciate consultation greatly Chencho Darby MD Mar 05, 2018 13:41
[2018-03-05 14:05] LABS: % IRON SATURATION 34 % (15-50); IRON 75 ug/dL (50-175); TOTAL IRON BINDING CAPACITY 219 ug/dL (250-450)
[2018-03-05 14:20] LABS: FERRITIN 366 NG/ML (8-388)
[2018-03-05] MEDS ORDERED: AMOX TR-K CLV1 EAC2 GT (15:18)
--- NOTE | 2018-03-05 15:28 | Discharge Summary ---
Discharge Summary Hospital Course Date of Admission Mar 03, 2018 at 02:23 Date of Discharge 03/05/18 Admitting Diagnosis Aspiration pneumonia JUSTICE Hyponatremia Acute metabolic encephalopathy HPI Enrique Del Toro Justen Cpa is a 67 year old male who was admitted on Mar 03, 2018 at 02: 23 for Pneumonia Consultations Pulmonology, ID Hospital Course Patient was admitted to the medical service, telemetry unit, treated with Zosyn and Duoneb with improvement in his respiratory status. Seen by ID and Pulmonology, repeat CXR was negative for significant infiltrate so he was transitioned to Augmentin via G-tube which he will continue for another 3 days as outpatient. No hypoxemia or leukocytosis noted on day of discharge. He was also noted to have JUSTICE and hyponatremia, treated with IV NS with improvement in renal function and sodium levels, can resume lisinopril HCTZ upon discharge. Discharge plans discussed with his significant other at bedside and with his PCP Dr. Garcia. 35 minutes was spent on discharging this patient which included time spent coordinating care with nursing and internal consultant physicians and discussing discharge instructions to family. Discharge Medications New Medications: Amoxicillin/Potassium Clav 875-125 Mg Tab* (Amox Tr-K Clv 875-125 Mg Tab*) 1 Each Tablet 875 MG GT EVERY 12 HOURS for 3 Days, #6 TAB Continued Medications: Amlodipine Besylate (Norvasc) 5 Mg Tablet 5 MG ORAL BID, TAB (This prescription has been renewed) Aspirin* (Aspir 81*) 81 Mg Tablet.dr 81 MG ORAL DAILY, TAB (This prescription has been renewed) Atorvastatin (Lipitor) 80 Mg Tablet 80 MG ORAL BEDTIME, #30 TAB 0 Refills (This prescription has been renewed) Enoxaparin Sodium (Lovenox) 300 Mg/3 Ml Vial 40 MG SUBQ DAILY Fluoxetine Hcl* (Fluoxetine Hcl*) 20 Mg Tablet 20 MG ORAL DAILY, TAB (This prescription has been renewed) Hydralazine HCl (Hydralazine HCl) 100 Mg Tablet 100 MG ORAL EVERY 8 HOURS PRN for For High Blood Pressure, TAB (This prescription has been renewed) Hydrochlorothiazide* (Hydrochlorothiazide*) 12.5 Mg Capsule 12.5 MG ORAL DAILY, CAP (This prescription has been renewed) Lansoprazole* (Prevacid*) 30 Mg Capsule.dr 30 MG ORAL DAILY, CAP (This prescription has been renewed) Levetiracetam* (Levetiracetam*) 100 Mg/1 Ml Solution 500 MG GT BID (This prescription has been renewed) Lisinopril (Lisinopril*) 20 Mg Tablet 20 MG ORAL BID, TAB (This prescription has been renewed) Discharge Condition Upon Discharge: improving Discharge Disposition Patient was discharged to Discharge Diagnoses: (1) Aspiration pneumonia (2) JUSTICE (acute kidney injury) Keven Feliz MD Mar 05, 2018 15:28
[2018-03-05 16:00] VITALS: BP 149/80
--- NOTE | 2018-03-05 17:25 | Infectious Diseases Prog Note ---
Assessment/Plan Assessment/Plan A) 1) possible aspiration pna with sepsis and leukocytosis 2) cva, left sided weakness, htn, g-tube, sz, right craniotomy 3) allergies - nkda 4) sh-negative, fh-nc, mar noted, notes and records noted, orders reviewed 5) d/w RN P) 1) augmentin x 3 days - short abx course of zosyn and augmentin 2) clinically stable, chest x-ray stable 3) d/w Dr. Xavier 4) stable ID standpoint Subjective Constitutional: Denies: fever HEENT: Denies: congestion Respiratory: Denies: shortness of breath Cardiovascular: Denies: chest pain Gastrointestinal/Abdominal: Denies: nausea, vomiting, diarrhea Genitourinary: Reports: other - no eaton Neurologic: Reports: headache Psychiatric: Denies: depression Skin: Denies: rash Hematologic: Denies: bleeding Musculoskeletal: Denies: pain Allergies: Coded Allergies: NO KNOWN ALLERGIES (Verified Allergy, Unknown, 03/03/18) Objective Vital Signs Last 24 Hour Vital Signs Date Time Temp Pulse Resp B/P (MAP) Pulse Ox O2 Delivery O2 Flow Rate FiO2 03/05/18 16:00 68 03/05/18 16:00 96.3 69 20 149/80 (103) 97 96.3 03/05/18 13:13 75 18 97 Room Air 21 03/05/18 13:03 68 18 95 Room Air 21 03/05/18 12:00 78 03/05/18 11:31 97.2 70 20 147/73 (97) 99 97.2 03/05/18 09:00 Room Air 03/05/18 08:44 68 145/76 03/05/18 08:42 97.9 68 18 145/76 (99) 98 97.9 03/05/18 08:00 78 03/05/18 07:54 77 18 100 Room Air 21 03/05/18 07:44 66 16 97 Room Air 21 03/05/18 04:00 97.9 63 17 134/61 (85) 98 97.9 03/05/18 04:00 70 03/05/18 01:15 67 18 99 Room Air 21 03/05/18 00:44 68 18 97 Room Air 21 03/05/18 00:00 69 03/05/18 00:00 97.7 56 20 125/51 (75) 96 97.7 03/04/18 21:00 Room Air 03/04/18 20:00 71 03/04/18 20:00 98.1 69 20 137/58 (84) 97 98.1 03/04/18 18:46 65 18 99 Room Air 21 03/04/18 18:37 67 18 98 Room Air 21 Height (Feet): 5 Height (Inches): 11.00 Weight (Pounds): 170 General Appearance: no acute distress HEENT: normocephalic, atraumatic, anicteric, mucous membranes moist Respiratory/Chest: lungs clear, normal breath sounds, no respiratory distress, no accessory muscle use, decreased breath sounds Cardiovascular: normal rate, regular rhythm, regularly irregular, no gallop/ murmur, no JVD Abdomen: normal bowel sounds, soft, non tender, no organomegaly, non distended Genitourinary: other - no eaton Extremities: no cyanosis Skin: no rash Neurologic/Psychiatric: 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 Pleural space: Unremarkable. The costophrenic angles are sharp. No visible pneumothorax. Heart: Unremarkable. No cardiomegaly. Mediastinum: Unremarkable. Bones/joints: Unremarkable. Tubes, lines and devices: EKG leads overlie the thorax. IMPRESSION: Subsegmental atelectasis at the periphery of the left lung base. Microbiology Date/Time Source Procedure Growth Status 03/03/18 09:20 Blood Blood Culture - Preliminary NO GROWTH AFTER 24 HOURS Resulted 03/03/18 09:10 Blood Blood Culture - Preliminary NO GROWTH AFTER 24 HOURS Resulted Laboratory Tests Test 03/05/18 05:25 White Blood Count 6.0 K/UL (4.8-10.8) Red Blood Count 3.16 M/UL (4.70-6.10) L Hemoglobin 9.3 G/DL (14.2-18.0) L Hematocrit 27.3 % (42.0-52.0) L Mean Corpuscular Volume 86 FL (80-99) Mean Corpuscular Hemoglobin 29.5 PG (27.0-31.0) Mean Corpuscular Hemoglobin Concent 34.2 G/DL (32.0-36.0) Red Cell Distribution Width 13.5 % (11.6-14.8) Platelet Count 206 K/UL (150-450) Mean Platelet Volume 5.0 FL (6.5-10.1) L Neutrophils (%) (Auto) 75.0 % (45.0-75.0) Lymphocytes (%) (Auto) 12.1 % (20.0-45.0) L Monocytes (%) (Auto) 8.2 % (1.0-10.0) Eosinophils (%) (Auto) 2.9 % (0.0-3.0) Basophils (%) (Auto) 1.7 % (0.0-2.0) Sodium Level 139 MMOL/L (136-145) Potassium Level 3.9 MMOL/L (3.5-5.1) Chloride Level 105 MMOL/L (98-107) Carbon Dioxide Level 25 MMOL/L (21-32) Anion Gap 9 mmol/L (5-15) Blood Urea Nitrogen 19 mg/dL (7-18) H Creatinine 0.7 MG/DL (0.55-1.30) Estimat Glomerular Filtration Rate > 60 mL/min (>60) Glucose Level 111 MG/DL (74-106) H Calcium Level 8.6 MG/DL (8.5-10.1) Iron Level 75 ug/dL (50-175) Total Iron Binding Capacity 219 ug/dL (250-450) L Percent Iron Saturation 34 % (15-50) Unsaturated Iron Binding 144 ug/dL (112-346) Ferritin 366 NG/ML (8-388) Current Medications Medications (Trade) Dose Ordered Sig/Lakeshia Route PRN Reason Start Time Stop Time Status Last Admin Dose Admin Acetaminophen (Tylenol) 650 mg Q6H PRN NG Mild Pain/Temp > 100.5 03/03/18 09:30 04/02/18 09:29 03/04/18 20:33 Albuterol/ Ipratropium (Albuterol/ Ipratropium) 3 ml Q4H PRN HHN Shortness of Breath 03/03/18 10:00 03/08/18 09:59 Albuterol/ Ipratropium (Albuterol/ Ipratropium) 3 ml Q6HRT HHN 03/03/18 13:00 03/08/18 12:59 03/05/18 13:03 Amlodipine Besylate (Norvasc) 5 mg BID GT 03/03/18 09:30 04/02/18 09:29 03/05/18 08:44 Amoxicillin/ Clavulanate Potassium (Augmentin) 875 mg EVERY 12 HOURS GT 03/04/18 21:00 03/11/18 20:59 03/05/18 08:41 Enoxaparin Sodium (Lovenox) 40 mg DAILY SUBQ 03/03/18 10:30 04/02/18 10:29 03/05/18 08:45 Hydralazine HCl (Apresoline) 100 mg Q8H PRN GT SBP>160 03/03/18 09:30 04/02/18 09:29 Lansoprazole (Prevacid) 30 mg DAILY GT 03/04/18 09:00 04/03/18 08:59 03/05/18 08:41 Levetiracetam (Keppra) 500 mg Q12HR GT 03/03/18 21:00 04/02/18 20:59 03/05/18 08:41 Ondansetron HCl (Zofran) 4 mg Q6H PRN IVP Nausea & Vomiting 03/03/18 22:15 04/02/18 22:14 03/03/18 22:37 Sodium Chloride 1,000 ml @ 75 mls/hr [id number] IV 03/03/18 14:06 04/02/18 14:05 03/05/18 06:16 Chary Zabala MD Mar 05, 2018 17:25
[2018-03-05 17:26] VITALS: BP 149/80
--- NOTE | 2018-03-06 12:00 | Consultation ---
DATE OF CONSULTATION: 03/03/2018 INFECTIOUS DISEASE CONSULTATION ATTENDING PHYSICIAN: Demetri Patel M.D. REFERRING PHYSICIAN: Katrina Walker M.D. CONSULTING PHYSICIAN: Chary Zabala M.D. REASON FOR CONSULTATION: Aspiration pneumonia. CHIEF COMPLAINT: The patient's chief complaint coming into the hospital is pneumonia and sepsis. HISTORY OF PRESENT ILLNESS: This is a 67-year-old male with a history of CVA and right craniotomy. He has ischemic stroke with edema. The patient has left-sided weakness and dysarthria. He is able to speak, but limited. The patient has a G-tube and was noted on discussion with the patient's caregiver that the patient had vomiting episode and possibly aspirated. I believe this is around on Tuesday. I think the patient progressed with regards to symptoms including sweating and according to the caregiver, the patient did not look well. The patient was taken to [facility], was noted to have a white count of 13.5 and possible sepsis because of the elevated white count. The patient was transferred to [facility]. Infectious Disease consultation is requested. The patient was on vancomycin and Zosyn. Chest x-ray from [facility] was unremarkable, was negative for infiltrate here. The patient has what looks like atelectasis, unclear if it is an infiltrate. The patient was placed on vancomycin and Zosyn. I am going to continue Zosyn, discontinue vancomycin since the chest x-ray is not clear for pneumonia at this time, but it does show atelectasis, unclear if this is infiltrate. Case was discussed with Dr. Herndon. Case was discussed with RN. Differential diagnosis at this time will be possible aspiration pneumonia with sepsis and leukocytosis. MAR was noted. Orders were noted. Notes were reviewed. Outside records were reviewed. The patient in the outside setting was congested and short of breath per caregiver. REVIEW OF SYSTEMS: GENERAL: Main issue was discussed prior to admission. He just has sweating that was diffuse. Again, discussion with the patient's caregiver at the bedside. HEAD AND NECK: There was no nausea, head pain, or neck pain at this time. There is no seizure activity. GENITOURINARY: No Cottrell. PULMONARY: The patient had cough, congestion, and shortness of breath. SKIN: No new rash. NEUROLOGIC: No seizures already mentioned. Generalized weakness. No fevers. He did have sweats. No chest pain. No nausea, vomiting, or diarrhea at this time. He did have what sounds like vomiting. He has a G-tube. He is responsive, but has left-sided weakness. GENITOURINARY: No Cottrell. No hemoptysis or secretions. PAST MEDICAL HISTORY: Includes history of hypertension, history of CVA, ischemic stroke with edema, right craniotomy with left-sided weakness, G-tube, dysphagia, and history of seizures. No history of diabetes. No history of cancer. ALLERGIES: No known allergies. SOCIAL HISTORY: Negative for smoking, alcohol, or drug abuse. FAMILY HISTORY: Noncontributory. MEDICATIONS: Upon reviewing the MAR, he is on the following medications: He is on Zosyn and vancomycin. I have discontinued the vancomycin. He is on enoxaparin, albuterol, acetaminophen, amlodipine, and hydralazine. He is on Keppra. He is on non-formulary medications, amlodipine. Outside medications included atorvastatin, amlodipine, enoxaparin, hydralazine, and hydrochlorothiazide. Blood pressure medicine, lisinopril. Antibiotics, he is on Zosyn and stopped the vancomycin. PHYSICAL EXAMINATION: VITAL SIGNS: Temperature is 98.1, pulse rate 69, respiratory rate 20, blood pressure 144/59, and saturation 99%. GENERAL: Opens eyes, alert, responsive, in no acute distress. No significant shortness of breath noted. He has no significant congestion at this time. HEAD AND NECK: No icterus. No thrush. Normocephalic. Neck is supple. No effusions. HEART: Regular rate and rhythm. No gallops or murmur. ABDOMEN: G-tube cellulitis without any redness. Soft. Positive bowel sounds. Nontender. LUNGS: A few bilateral rhonchi. No definite rales. Fairly clear bilaterally. SKIN: No rash. MUSCULOSKELETAL: No effusion. Legs are without cellulitis. PERIPHERAL VASCULAR: No cyanosis or gangrene. He has G-tube. There is no cellulitis around it. GENITOURINARY: No Cottrell. LINE SITES: Without phlebitis. NEUROLOGIC: Generalized weakness and responsive. He is able to speak some words, also more so left-sided weakness. LABORATORY AND DIAGNOSTIC DATA: Laboratory data is as follows: White count 8.8 and hemoglobin 10.9. The patient's creatinine is 1.2. Outside white count is 13.5. Outside creatinine was 1.67. Sodium 133 and creatinine 1.2 at this time. Chest x-ray shows atelectasis on the left, pleural fluid. No acute process. Otherwise, no infiltrate mention. Also chest x-ray, there is no infiltrate. ASSESSMENT AND PLAN: 1. The patient has what sounds like possible aspiration pneumonia. Prior to admission, he had congestion, was sounds like vomiting, gastrostomy tube feedings are possibly aspirating. At this time, we will continue Zosyn for possible aspiration pneumonia. The patient did have either bacterial pneumonia or chemical pneumonitis. Chest x-ray seems to be unremarkable at the outside facility here at [place]. We will get followup chest x-ray. Continue Zosyn for now for possible aspiration pneumonia, sepsis, and elevated white count. Of note, the leukocytosis has resolved. The patient is somewhat stable at this time. We will continue Zosyn and discontinue vancomycin. Check followup labs and chest x-ray. In regards to length of antibiotic treatment. If there is evidence of an infiltrate, then we will consider 7 to 10-day treatment course total and certainly can give Augmentin on discharge 375 mg p.o. b.i.d. for remainder of antibiotic course. If the patient's chest x-ray is unremarkable, maybe go shorter course of antibiotics, but we will discuss with primary team. 2. The patient has hypertension. 3. Questionable hyperlipidemia. The patient is on a statin. 4. Hypertension, primary. 5. Cerebrovascular accident, ischemic stroke with edema, status post craniotomy on the right. 6. Left-sided weakness. 7. Gastrostomy tube. 8. Dysphagia. 9. Seizures. 10. Cerebrovascular accident with weakness. 11. No known allergy. 12. Social history is negative. 13. Family history is noncontributory. 14. MAR was noted. 15. Case was discussed with RN. 16. Case was discussed with Dr. Herndon. Chary Zabala M.D. DR: LORIE JOB#: [id number] CC: REGAN
== END 2018-03-05 17:51 | disposition home or self-care (01) | DRG 177 ==
LOC: 2E 02:23
DX: J69.0 Pneumonitis due to inhalation of food and vomit (principal); G93.41 Metabolic encephalopathy; N17.9 Acute kidney failure, unspecified; I69.354 Hemiplegia and hemiparesis following cerebral infarction affecting left non-dominant side; Z43.1 Encounter for attention to gastrostomy; E87.1 Hypo-osmolality and hyponatremia; I10 Essential (primary) hypertension; E78.5 Hyperlipidemia, unspecified; Z85.89 Personal history of malignant neoplasm of other organs and systems; Z92.3 Personal history of irradiation; R13.10 Dysphagia, unspecified; D63.8 Anemia in other chronic diseases classified elsewhere; E86.0 Dehydration
CPT/HCPCS: 36415; 71045; 80048; 80076; 82306; 82607; 82728; 82746; 83540; 83550; 83735; 84443; 85025; 87040; 94640; 94664; J2405; J7620